=== PATIENT | female | born 1940 | race Caucasian/White ===

== ENCOUNTER → 2016-10-06 | Outpatient (CLI) | payer MEDICARE ==
[~2016-10-06] MED LIST: ALKA-SELTZER; CETI10TA4 PO; LOSA1TAB18 PO; PRILOSEC; RELIEF PO; SIMV40TA3 PO; VITA150T PO
[2016-10-06 10:36] LABS: ASPARTATE AMINO TRANSFERASE 16 U/L (15-37); BLOOD UREA NITROGEN 19 mg/dL (7-18)
== END | disposition home or self-care (01) ==
LOC: STAR 09:18
PROVIDERS: ATTEND Orthopaedic Surgery Orthopaedic Surgery of the Spine
DX: Z01.818 Encounter for other preprocedural examination (principal); M46.1 Sacroiliitis, not elsewhere classified
CPT/HCPCS: 36415; 71020; 80053; 81001; 85025; 93005

== ENCOUNTER 2016-10-16 08:20 | Inpatient (IN) | payer MEDICARE ==
[~2016-10-16] VITALS: Ht 162.6 cm; Wt 93.5 kg
[~2016-10-16 08:20] MED LIST changes: +BUPIVACAINE/PF-EPI 0.5% 1:200K ONE; +NEOSPORIN OINT, 15GM ONE; -PRILOSEC; +PRILOSEC PO; +THROMBIN 5,000 UNIT VIAL TP ONE
[2016-10-16] MEDS ORDERED: LACTATED RINGERS 1,000 ML IV SCH (08:44)
[2016-10-16 09:08] VITALS: BP 136/86
[2016-10-16] MEDS ORDERED: MIDAZOLAM 1 MG/ML, 2ML ONE (09:27)
[2016-10-16] MEDS ORDERED: FENTANYL PF 250 MCG/5ML ONE (09:27)
[2016-10-16] MEDS ORDERED: MAGNESIUM HYDROXIDE 8%, 30ML UDC PO PRN (11:30)
[2016-10-16] MEDS ORDERED: OMEPRAZOLE 20 MG CAPSULE.DR PO PRN (11:30)
[2016-10-16] MEDS ORDERED: BISACODYL 10 MG SUPP PR PRN (11:30)
[2016-10-16] MEDS ORDERED: METHOCARBAMOL 750 MG TABLET PO PRN (11:30)
[2016-10-16] MEDS ORDERED: ONDANSETRON 2MG/ML, 2ML IVPush PRN ×2 (11:30→12:00)
[2016-10-16] MEDS ORDERED: morphine SULFATE 10 MG/ML, 1ML IVPush PRN (11:30)
[2016-10-16] MEDS ORDERED: DIPHENHYDRAMINE 50 MG/ML, 1ML IVPush PRN (11:30)
[2016-10-16] MEDS ORDERED: PROMETHAZINE 25 MG/ML, 1ML IM PRN (11:30)
[2016-10-16] MEDS ORDERED: CETIRIZINE 10 MG TABLET PO PRN (11:30)
[2016-10-16] MEDS ORDERED: SENNA/DOCUSATE TABLET PO PRN (11:30)
[2016-10-16] MEDS: OXYcodone/APAP 5/325MG TABLET PO SCH ×3 (11:30→20:46)
[2016-10-16] MEDS ORDERED: PHARMACY MAY ADJ FOR RENAL FX MC PRN (11:30)
[2016-10-16] MEDS ORDERED: hydrALAzine 20 MG/ML, 1ML IV PRN (12:00)
[2016-10-16] MEDS ORDERED: FENTANYL PF 100 MCG/2ML IV PRN (12:00)
[2016-10-16] MEDS ORDERED: ACETAMINOPHEN 325 MG TABLET PO PRN (12:00)
[2016-10-16] MEDS ORDERED: LABETALOL 5MG/ML, 20ML IV PRN (12:00)
[2016-10-16] MEDS ORDERED: OXYcodone 5 MG/5 ML ORAL.SOL UDC PO PRN (12:00)
[2016-10-16] MEDS ORDERED: PROMETHAZINE 25 MG/ML, 1ML IV PRN (12:00)
[2016-10-16] MEDS ORDERED: MEPERIDINE/PF 25MG/0.5ML IVPush PRN (12:00)
[2016-10-16] MEDS ORDERED: OXYcodone 5 MG/5 ML ORAL.SOL UDC ONE (12:44)
[2016-10-16] MEDS ORDERED: HYDROmorphone 1 MG/ML, 1ML ONE (12:44)
[2016-10-16] MEDS: HYDROmorphone 1 MG/ML, 1ML IV PRN ×2 (12:48→13:14)
[2016-10-16 14:30] VITALS: BP 102/53
[2016-10-16] MEDS ORDERED: ROCURONIUM 10 MG/ML ONE (15:37)
[2016-10-16] MEDS ORDERED: SUCCINYLCHOLINE 20 MG/ML, 10ML ONE (15:37)
[2016-10-16] MEDS ORDERED: DEXAMETHASONE 4 MG/ML, 1ML ONE (15:37)
[2016-10-16] MEDS ORDERED: ONDANSETRON 2MG/ML, 2ML ONE (15:37)
[2016-10-16] MEDS ORDERED: PROPOFOL 10 MG/ML, 20ML ONE (15:37)
[2016-10-16] MEDS ORDERED: CEFAZOLIN 1,000 MG ONE (15:37)
[2016-10-16] MEDS: OMEPRAZOLE MC SCH ×2 (16:23→23:00)
[2016-10-16] MEDS: D5%-0.9% NACL+KCL 20MEQ 1,000 ML IV SCH (17:44)
[2016-10-16 19:21] VITALS: BP 101/57
[2016-10-16] MEDS: CEFAZOLIN PMX 1GM/50ML 50 ML IVPB SCH (19:49)
[2016-10-16] MEDS ORDERED: SIMVASTATIN 40 MG TABLET PO SCH (21:00)
[2016-10-17 00:09] VITALS: BP 101/57
[2016-10-17] MEDS: OXYcodone/APAP 5/325MG TABLET PO SCH ×3 (00:40→09:05)
[2016-10-17] MEDS: CEFAZOLIN PMX 1GM/50ML 50 ML IVPB SCH (03:15)
[2016-10-17 03:18] VITALS: BP 89/49
[2016-10-17] MEDS ORDERED: OXYC-302 PO (03:54)
[2016-10-17] MEDS ORDERED: CLIN300C93 PO (03:57)
[2016-10-17] MEDS: D5%-0.9% NACL+KCL 20MEQ 1,000 ML IV SCH (04:10)
[2016-10-17 06:12] VITALS: BP 95/51
[2016-10-17 06:51] VITALS: BP 89/44
[2016-10-17] MEDS: OMEPRAZOLE MC SCH (07:00)
[2016-10-17] MEDS ORDERED: TAMSULOSIN 0.4 MG CAP.ER.24H PO ONE (08:30)
[2016-10-17] MEDS ORDERED: LOSARTAN 50MG TABLET PO SCH (09:00)
[2016-10-17] MEDS ORDERED: HYDROCHLOROTHIAZIDE 25 MG TABLET PO SCH (09:00)
[2016-10-17] MEDS ORDERED: TEMPLATE NON-FORMULARY MED. (Losartan/Hydrochlorothiazide** (Losartan-Hctz 100-12.5 Mg Tab PO SCH (09:00)
== END 2016-10-17 09:12 | disposition home or self-care (01) | DRG 460 ==
LOC: ORIP 08:20 → 4NOR 13:39
PROVIDERS: ADMIT Orthopaedic Surgery Orthopaedic Surgery of the Spine; ATTEND Orthopaedic Surgery Orthopaedic Surgery of the Spine
PROC: 0SG804Z Fusion of Left Sacroiliac Joint with Internal Fixation Device, Open Approach (ICD-10-PCS; principal; 2016-10-16 10:30)
DX: M46.1 Sacroiliitis, not elsewhere classified (principal); E66.01 Morbid (severe) obesity due to excess calories; I10 Essential (primary) hypertension; Z88.8 Allergy status to other drugs, medicaments and biological substances; Z88.0 Allergy status to penicillin; Z90.710 Acquired absence of both cervix and uterus; Z90.49 Acquired absence of other specified parts of digestive tract; Z68.35 Body mass index [BMI] 35.0-35.9, adult
CPT/HCPCS: 72202; 76000; J0690; J1100; J1170; J2250; J2405; J2704; J3010; C1762; C1776; J0330; J3480; J7120

== ENCOUNTER 2016-11-06 09:23 | Inpatient (IN) | payer MEDICARE ==
[~2016-11-06] VITALS: Ht 162.6 cm; Wt 95.0 kg
[~2016-11-06 09:23] MED LIST changes: +CLIN300C93 PO; +OXYC-302 PO; -THROMBIN 5,000 UNIT VIAL TP ONE
[2016-11-06 09:53] VITALS: BP 139/84
[2016-11-06 10:09] VITALS: BP 139/84
[2016-11-06] MEDS: LACTATED RINGERS 1,000 ML IV SCH ×2 (10:18→10:20)
[2016-11-06] MEDS ORDERED: MIDAZOLAM 1 MG/ML, 2ML ONE (10:42)
[2016-11-06] MEDS ORDERED: FENTANYL PF 250 MCG/5ML ONE (10:42)
[2016-11-06] MEDS ORDERED: PROMETHAZINE 25 MG/ML, 1ML IM PRN (12:00)
[2016-11-06] MEDS ORDERED: ALUMINUM/MAG/SIMETHICONE 30 ML UDC PO PRN (12:00)
[2016-11-06] MEDS ORDERED: SENNA/DOCUSATE TABLET PO PRN (12:00)
[2016-11-06] MEDS ORDERED: BISACODYL 10 MG SUPP PR PRN (12:00)
[2016-11-06] MEDS ORDERED: morphine SULFATE 10 MG/ML, 1ML IV PRN (12:00)
[2016-11-06] MEDS ORDERED: HYDROcodone/APAP 5/325 TABLET PO PRN (12:00)
[2016-11-06] MEDS ORDERED: DIPHENHYDRAMINE 25 MG CAPSULE PO PRN (12:00)
[2016-11-06] MEDS ORDERED: CETIRIZINE 10 MG TABLET PO PRN (12:00)
[2016-11-06] MEDS ORDERED: MAGNESIUM HYDROXIDE 8%, 30ML UDC PO PRN (12:00)
[2016-11-06] MEDS ORDERED: ONDANSETRON 2MG/ML, 2ML IV PRN (12:00)
[2016-11-06] MEDS ORDERED: ONDANSETRON 2MG/ML, 2ML IVPush PRN (12:30)
[2016-11-06] MEDS ORDERED: HYDROmorphone 1 MG/ML, 1ML IV PRN (12:30)
[2016-11-06] MEDS ORDERED: OXYcodone 5 MG/5 ML ORAL.SOL UDC PO PRN (12:30)
[2016-11-06] MEDS ORDERED: hydrALAzine 20 MG/ML, 1ML IV PRN (12:30)
[2016-11-06] MEDS ORDERED: ACETAMINOPHEN 325 MG TABLET PO PRN (12:30)
[2016-11-06] MEDS ORDERED: MEPERIDINE/PF 25MG/0.5ML IVPush PRN (12:30)
[2016-11-06] MEDS ORDERED: LABETALOL 5MG/ML, 20ML IV PRN (12:30)
[2016-11-06] MEDS ORDERED: PROMETHAZINE 25 MG/ML, 1ML IV PRN (12:30)
[2016-11-06] MEDS ORDERED: ACETAMINOPHEN 650 MG/20.3 ML UDC ONE (13:38)
[2016-11-06] MEDS ORDERED: FENTANYL PF 100 MCG/2ML ONE (13:38)
[2016-11-06] MEDS ORDERED: OXYcodone 5 MG/5 ML ORAL.SOL UDC ONE (13:39)
[2016-11-06] MEDS: FENTANYL PF 100 MCG/2ML IV PRN ×2 (13:44→13:53)
[2016-11-06] MEDS ORDERED: HYDROmorphone 1 MG/ML, 1ML ONE (14:05)
[2016-11-06] MEDS ORDERED: SUCCINYLCHOLINE 20 MG/ML, 10ML ONE (15:30)
[2016-11-06] MEDS ORDERED: DEXAMETHASONE 4 MG/ML, 1ML ONE (15:30)
[2016-11-06] MEDS ORDERED: ROCURONIUM 10 MG/ML ONE (15:30)
[2016-11-06] MEDS ORDERED: PROPOFOL 10 MG/ML, 20ML ONE (15:30)
[2016-11-06] MEDS ORDERED: ONDANSETRON 2MG/ML, 2ML ONE (15:30)
[2016-11-06] MEDS ORDERED: CEFAZOLIN 1,000 MG ONE (15:30)
[2016-11-06] MEDS: D5%-0.45% NACL 1,000 ML IV SCH (16:06)
[2016-11-06] MEDS: OXYcodone/APAP 5/325MG TABLET PO PRN ×2 (17:16→21:08)
[2016-11-06] MEDS ORDERED: OMEPRAZOLE 20 MG CAPSULE.DR PO PRN (18:13)
[2016-11-06 19:45] VITALS: BP 120/60
[2016-11-06] MEDS ORDERED: SIMVASTATIN 40 MG TABLET PO SCH (21:00)
[2016-11-06] MEDS: DOCUSATE 100 MG CAPSULE PO SCH (21:05)
[2016-11-06] MEDS: CEFAZOLIN PMX 1GM/50ML 50 ML IVPB SCH (21:05)
[2016-11-07 00:26] VITALS: BP 91/49
[2016-11-07] MEDS: OXYcodone/APAP 5/325MG TABLET PO PRN ×2 (02:03→06:12)
[2016-11-07] MEDS: D5%-0.45% NACL 1,000 ML IV SCH ×2 (02:03→07:06)
[2016-11-07 04:07] VITALS: BP 97/49
[2016-11-07] MEDS: CEFAZOLIN PMX 1GM/50ML 50 ML IVPB SCH (04:22)
[2016-11-07 08:17] VITALS: BP 96/62
[2016-11-07] MEDS: DOCUSATE 100 MG CAPSULE PO SCH (08:24)
[2016-11-07] MEDS ORDERED: TEMPLATE NON-FORMULARY MED. (Losartan/Hydrochlorothiazide** (Losartan-Hctz 100-12.5 Mg Tab PO SCH (09:00)
[2016-11-07 09:26] VITALS: BP 115/58
== END 2016-11-07 10:01 | disposition home or self-care (01) | DRG 982 ==
LOC: INTOOBSV 09:23 → ORIP 09:23 → OBSVTOIN 12:00 → 4NOR 14:50 → UNDODISOB 11-07 10:01
PROVIDERS: ADMIT Orthopaedic Surgery Orthopaedic Surgery of the Spine; ATTEND Orthopaedic Surgery Orthopaedic Surgery of the Spine
PROC: 0SP804Z Removal of Internal Fixation Device from Left Sacroiliac Joint, Open Approach (ICD-10-PCS; 2016-11-06)
PROC: 0QW Lower Bones, Revision (ICD-10-PCS; principal; 2016-11-06 11:30)
DX: M54.18 Radiculopathy, sacral and sacrococcygeal region (principal); T84.226A Displacement of internal fixation device of vertebrae, initial encounter; M46.1 Sacroiliitis, not elsewhere classified; M19.90 Unspecified osteoarthritis, unspecified site; I10 Essential (primary) hypertension; Z88.1 Allergy status to other antibiotic agents; Z88.0 Allergy status to penicillin; Z98.1 Arthrodesis status; Z88.8 Allergy status to other drugs, medicaments and biological substances; Z90.49 Acquired absence of other specified parts of digestive tract; Z90.710 Acquired absence of both cervix and uterus
CPT/HCPCS: 72202; 76000; 96365; 96375; G0378; J0690; J1100; J1170; J2250; J2405; J2704; J3010; C1762; C1776; J0330; J7120

== ENCOUNTER → 2017-09-04 | Outpatient (CLI) | payer MEDICARE ==
[~2017-09-04] MED LIST changes: -BUPIVACAINE/PF-EPI 0.5% 1:200K ONE; -CETI10TA4 PO; +CLIN300C8 PO; -CLIN300C93 PO; -LOSA1TAB18 PO; +LOSA1TAB25 PO; -NEOSPORIN OINT, 15GM ONE; +[UNRECOGNIZED DRUG - CODE] PO
== END | disposition home or self-care (01) ==
LOC: CVU 06:53
PROVIDERS: ATTEND Internal Medicine Cardiovascular Disease
DX: Z01.810 Encounter for preprocedural cardiovascular examination (principal); I35.8 Other nonrheumatic aortic valve disorders; I51.7 Cardiomegaly; I10 Essential (primary) hypertension; E78.5 Hyperlipidemia, unspecified
CPT/HCPCS: 93306